=== PATIENT | male | born 1945 | race Caucasian/White ===

== ENCOUNTER 2019-04-13 07:56 | Outpatient (CLI) | payer MEDICARE ==
--- NOTE | 2019-04-13 08:53 | ULT ---
Sonogram right upper quadrant HISTORY: Right upper quadrant pain. FINDINGS: Echogenic material layers within the dependent portion of the gallbladder lumen. No shadowi ng stones are visible. No gallbladder wall thickening or pericholecystic fluid. Common duct is 0.3 cm. Liver is diffusely echogenic without focal mass or intrahepatic biliary dilatation. No free fluid. IMPRESSION: Biliary sludge within the gallbladder is evidence of chronic gallbladder dyskinesis. No e vidence of stone or biliary obstruction. Hepatosteatosis.
== END 2019-04-13 07:57 | disposition home or self-care (01) ==
LOC: MADULT 07:56
PROVIDERS: ATTEND Family Medicine
DX: R10.11 Right upper quadrant pain (principal); K82.8 Other specified diseases of gallbladder; K76.0 Fatty (change of) liver, not elsewhere classified
CPT/HCPCS: 76705

== ENCOUNTER 2020-05-16 08:28 | Outpatient (CLI) | payer MEDICARE ==
[2020-05-16 09:00] LABS: ALT (SGPT) 19 U/L (8-55); AST (SGOT) 17 U/L (5-34); Albumin 4.2 g/dL (3.4-4.8); Alkaline Phosphatase 59 U/L (40-110); Anion Gap 13 mmol/L (10-20); BUN (Urea Nitrogen) 10 mg/dL (8.4-25.7); Bilirubin, Total 0.9 mg/dL (0.2-1.2); Calc. Creatinine Clearance 0 mL/min (70-130); Calcium 9.6 mg/dL (7.8-10.44); Carbon Dioxide 29 mmol/L (23-31); Chloride 104 mmol/L (98-107); Cholesterol 129 mg/dl (< 200 Desired); Globulin 2.2 g/dL (2.4-3.5); Glucose 153 mg/dL (83-110); HDL Cholesterol 64 mg/dL (>60 Neg Risk); LDL Cholesterol, Calculated 46 mg/dL; Potassium 4.6 mmol/L (3.5-5.1); Protein, Total 6.4 g/dL (5.8-8.1); Sodium 141 mmol/L (136-145); Triglycerides 96 mg/dL (Less than 150)
[2020-05-16 17:08] LABS: Hemoglobin A1c 6.8 % (4.0-6.0)
== END 2020-05-16 08:29 | disposition home or self-care (01) ==
LOC: MADLAB 08:28
PROVIDERS: ATTEND Family Medicine
DX: E78.5 Hyperlipidemia, unspecified (principal); E11.9 Type 2 diabetes mellitus without complications
CPT/HCPCS: 36415; 80053; 80061; 83036

== ENCOUNTER 2024-04-30 09:11 | Outpatient (CLI) | payer OTHER | END 2024-04-30 09:12 | disposition home or self-care (01) | LOC: MADLAB 09:11 | PROVIDERS: ATTEND Chiropractor | DX: M54.17 Radiculopathy, lumbosacral region (principal); M47.816 Spondylosis without myelopathy or radiculopathy, lumbar region | CPT/HCPCS: 72100 ==